=== PATIENT | male | born 1990 | race African-American/Black ===

== ENCOUNTER 2021-05-19 11:36 | Emergency (ER) | payer OTHER ==
[~2021-05-19] VITALS: Ht 170.2 cm; Wt 76.4 kg
[2021-05-19 12:14] LABS: BASO % 0.2 % (0.0-1.0); HEMATOCRIT 43.8 % (42.0-52.0); HEMOGLOBIN 15.1 g/dl (13.5-17.5); LYMPH # 1.3 10^3/uL (1.5-5.0); MEAN CORPUSCULAR HEMOGLOBIN 30.7 pg (27.0-33.0); MEAN CORPUSCULAR HGB CONC 34.5 g/dl (32.0-36.5); MONO # 0.3 10^3/uL (0.0-0.8); NEUTROPHILS # 8.6 10^3/uL (1.5-8.5); NEUTROPHILS % 83.5 % (36.0-66.0); PLATELET COUNT, AUTOMATED 185 10^3/uL (150-450); RED BLOOD COUNT 4.92 10^6/uL (4.30-6.10); WHITE BLOOD COUNT 10.3 10^3/uL (4.0-10.0)
--- NOTE | 2021-05-19 12:18 | REP ---
INDICATION: CHEST PAIN. COMPARISON: None. TECHNIQUE: AP view FINDINGS: The lungs are clear. The heart is not enlarged. There is no failure. IMPRESSION: No active process. <Electronically signed by Serafin Lincoln > 05/19/21 [id number]
[2021-05-19 12:31] LABS: BLOOD UREA NITROGEN 10 MG/DL (7-18); CALCIUM LEVEL 9.1 MG/DL (8.5-10.1); CARBON DIOXIDE LEVEL 28 MEQ/L (21-32); CHLORIDE LEVEL 108 MEQ/L (98-107); CK-MB VALUE MASS 1.6 NG/ML (<3.6); CPK CREATINE PHOSPHOKINASE 660 U/L (39-308); GLOMERULAR FILTRATION RATE > 60.0 (>60); GLUCOSE, FASTING 98 MG/DL (70-100); MB/CK RELATIVE INDEX 0.24 (< OR =4); POTASSIUM SERUM 3.8 MEQ/L (3.5-5.1); SODIUM LEVEL 140 MEQ/L (136-145); TROPONIN I < 0.02 NG/ML (< 0.10)
[2021-05-19] MEDS ORDERED: ISOVUE-370 76% 100ML VIAL As Ordered ONE (16:34)
[2021-05-19 18:10] LABS: CK-MB VALUE MASS 1.4 NG/ML (<3.6); CPK CREATINE PHOSPHOKINASE 797 U/L (39-308); MB/CK RELATIVE INDEX 0.18 (< OR =4); TROPONIN I < 0.02 NG/ML (< 0.10)
--- NOTE | 2021-05-19 18:14 | REPVR ---
PROCEDURE INFORMATION: Exam: CTA Chest With Contrast Exam date and time: 05/19/2021 5:30 PM Age: 31 years old Clinical indication: Other: Chest pain; Additional info: Rule out pe TECHNIQUE: Imaging protocol: Computed tomographic angiography of the chest with contrast. 3D rendering (Not supervised by radiologist): MIP and/or 3D reconstructed images were created by the technologist. Radiation optimization: All CT scans at this facility use at least one of these dose optimization techniques: automated exposure control; mA and/or kV adjustment per patient size (includes targeted exams where dose is matched to clinical indication); or iterative reconstruction. Contrast material: ISOVUE 370; Contrast volume: 75 ml; Contrast route: INTRAVENOUS (IV); COMPARISON: CR PORTABLE CHEST X-RAY 05/19/2021 11:58 AM FINDINGS: Pulmonary arteries: Normal. No pulmonary emboli. Aorta: Unremarkable. No aortic aneurysm. No aortic dissection. Lungs: Small bleb noted contiguous with the minor fissure. No pulmonary nodules. No masses. No infiltrates. Pleural spaces: Unremarkable. No pneumothorax. No pleural effusion. Heart: There the is cardiomegaly. Lymph nodes: Unremarkable. No enlarged lymph nodes. Bones/joints: Unremarkable. No acute fracture. Soft tissues: Unremarkable. IMPRESSION: 1. No acute pulmonary embolism. 2. Cardiomegaly Electronically signed by: Natasha Schwab On 05/19/2021 18:13:33 PM
[2021-05-19 19:47] VITALS: BP 126/80
--- NOTE | 2021-05-20 08:40 | ECGEPIP ---
[facility] - ED Test Date: 2021-05-19 Pat Name: VEL FONTENOT Department: Room: - Gender: Male Transition Manager: LR : 1990 Requested By: ALPHONSE Clark Order Number: [id number] Reading MD: Reynaldo Coates Measurements Intervals [place] Rate: 59 P: 54 W[place]: 168 QRS: 88 QRSD: 82 T: 11 QT: 392 QTc: 388 Interpretive Statements Sinus bradycardia NONSPECIFIC T WAVE ABNORMALITY(S) NO PRIORS FOR COMPARISON Electronically Signed on 05-20-2021 8:40:14 EDT by Reynaldo Coates
--- NOTE | 2021-05-20 08:56 | ECGEPIP ---
[facility] - ED Test Date: 2021-05-19 Pat Name: VEL FONTENOT Department: Room: - Gender: Male Scientific Research Associate: SHERI : 1990 Requested By: PAMELA Kennedy Order Number: [id number] Reading MD: Reynaldo Coates Measurements Intervals [place] Rate: 48 P: 51 [place]: 176 QRS: 42 QRSD: 82 T: 15 QT: 426 QTc: 380 Interpretive Statements Sinus bradycardia NONSPECIFIC T WAVE ABNORMALITY(S) SIMILAR TO PRIOR ON SAME DATE Electronically Signed on 05-20-2021 8:56:29 EDT by Reynaldo Coates
== END 2021-05-19 19:49 | disposition home or self-care (01) ==
LOC: M ED 11:36
DX: R07.89 Other chest pain (principal); R06.02 Shortness of breath; I51.7 Cardiomegaly; R00.1 Bradycardia, unspecified
CPT/HCPCS: 36415; 71045; 71275; 80048; 82550; 82553; 84484; 85025; 87798; 93005; 93041; 94760; 99285; Q9967